=== PATIENT | female | born 1970 | race Caucasian/White ===

== ENCOUNTER 2019-05-24 12:30 | Emergency (ER) | payer SELFPAY ==
[~2019-05-24] VITALS: Wt 111.8 kg
[2019-05-24] MEDS ORDERED: OZEMPIC0.25 MG/0. (12:46)
[2019-05-24] MEDS ORDERED: GLUCOPHAGE PO (12:46)
[2019-05-24 12:49] LABS: HEMATOCRIT 33.5 % (37.0-47.0); HEMOGLOBIN 11.1 g/dL (12.5-16.0); MEAN CELL VOLUME 84 fl (78-100); MEAN CORPUSCULAR HEMOGLOBIN 28 pg (27-31); MEAN CORPUSCULAR HGB CONC 33 g/dL (33-37); MEAN PLATELET VOLUME 9.2 fl (7.4-10.4); RED BLOOD COUNT 3.99 M/mm3 (4.10-5.30); RED CELL DISTRIBUTION WIDTH 13.3 % (11.5-14.5)
[2019-05-24 12:52] LABS: POTASSIUM 5.3 mmol/L (3.5-5.1); SODIUM 132 mmol/L (136-145)
[2019-05-24 12:53] LABS: ALBUMIN 4.3 g/dL (3.5-5.0); CALCIUM 9.4 mg/dL (8.3-10.5)
[2019-05-24 12:55] LABS: TOTAL PROTEIN 7.4 g/dL (6.4-8.3)
[2019-05-24 12:56] LABS: GLUCOSE 170 mg/dL (65-105); TOTAL BILIRUBIN 0.7 mg/dL (0.2-1.2)
[2019-05-24 13:00] LABS: AST-SGOT 250 U/L (5-34)
[2019-05-24 13:03] LABS: ALT/SGPT 89 U/L (0-55)
[2019-05-24 13:08] LABS: ALCOHOL IN-HOUSE < 10 mg/dL (<10); CARBON DIOXIDE 13 mmol/L (22-29)
[2019-05-24 13:09] LABS: PLATELET COUNT 520 K/mm3 (130-400); TROPONIN-I 0.04 ng/mL (<0.030); WHITE BLOOD COUNT 35.4 K/mm3 (4.8-10.8)
[2019-05-24 13:10] LABS: BAND 4 % (0-10); LYMPHOCYTE 7 % (20-51); MONOCYTE 7 % (3-10); NEUTROPHILS 82 % (42-75)
[2019-05-24 13:30] LABS: URINE APPEARANCE CLOUDY; URINE COLOR YELLOW
[2019-05-24 13:31] LABS: URINE BILIRUBIN NEGATIVE (NEGATIVE); URINE BLOOD 250 ery/uL (NEGATIVE); URINE GLUCOSE NEGATIVE (NEGATIVE); URINE KETONE NEGATIVE (NEGATIVE); URINE LEUKOCYTE ESTERASE NEGATIVE (NEGATIVE); URINE NITRATE NEGATIVE (NEGATIVE); URINE PROTEIN(semi-quant) 1+ mg/dL (NEGATIVE); URINE UROBILINOGEN NORMAL (NORMAL)
[2019-05-24 13:38] VITALS: BP 150/73
[2019-05-24 13:43] LABS: CKMB ISOENZYME 117.5 ng/mL (0.0-3.5)
[2019-05-24 13:55] LABS: ERYTHROCYTE SEDIMENTATION RATE 42 mm/hr (0-20)
== END 2019-05-24 13:55 | disposition short-term general hospital (02) ==
LOC: ED 12:30
PROVIDERS: Nurse Practitioner
DX: S40.812A Abrasion of left upper arm, initial encounter (principal); S40.811A Abrasion of right upper arm, initial encounter; T33.821A Superficial frostbite of right foot, initial encounter; T33.822A Superficial frostbite of left foot, initial encounter; S80.812A Abrasion, left lower leg, initial encounter; S80.811A Abrasion, right lower leg, initial encounter; M62.82 Rhabdomyolysis; I10 Essential (primary) hypertension; Z23 Encounter for immunization; Z79.84 Long term (current) use of oral hypoglycemic drugs; X31.XXXA Exposure to excessive natural cold, initial encounter
CPT/HCPCS: 90715; J2270; J7030; Q9967